=== PATIENT | female | born 1965 | race Caucasian/White ===

== ENCOUNTER 2018-11-05 15:05 | Inpatient (IN) | payer OTHER ==
[2018-11-05 19:32] VITALS: BMI 28.3
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
[2018-11-05] MEDS ORDERED: chlordiazePOXIDE HCL 25 MG CAPSULE PO ONE (20:50)
[2018-11-05] MEDS ORDERED: chlordiazePOXIDE HCL 10 MG CAPSULE PO PRN (20:50)
[2018-11-05] MEDS ORDERED: MENTHOL/PHENOL 1 EACH UD MM PRN (20:52)
[2018-11-05] MEDS ORDERED: MAG HYDROX/AL HYDROX/SIMETH 30 ML UNIT-DOSE CUP PO PRN (20:52)
[2018-11-05] MEDS ORDERED: METHOCARBAMOL 500 MG TABLET PO PRN (20:52)
[2018-11-05] MEDS ORDERED: MAGNESIUM HYDROX 2400MG/30ML ORAL SUSPENSION 30 ML CUP PO PRN (20:52)
[2018-11-05] MEDS ORDERED: BISMUTH SUBSALICYLATE 524 MG/30 ML UD PO PRN (20:52)
[2018-11-05] MEDS ORDERED: MELATONIN 5 MG TABLETS PO PRN (20:52)
[2018-11-05] MEDS ORDERED: NICOTINE POLACRILEX 2 MG GUM BUC PRN (20:52)
[2018-11-05] MEDS ORDERED: ACETAMINOPHEN 325 MG TABLET (FP) PO PRN (20:52)
[2018-11-05] MEDS ORDERED: ONDANSETRON *ODT* 4 MG TABLET SL PRN (20:52)
[2018-11-05] MEDS ORDERED: IBUPROFEN 400 MG TABLET (FP) PO PRN (20:52)
[2018-11-05] MEDS ORDERED: MAGNESIUM CITRATE 300 ML BOTTLE PO PRN (20:52)
[2018-11-05] MEDS ORDERED: BACITRACIN 0.9 GM PACKET TP SCH (22:00)
[2018-11-05] MEDS: THIAMINE HCL 100 MG TABLET (FP) PO SCH (22:21)
[2018-11-05] MEDS ORDERED: traZODone HCL 50 MG TABLET (FP) PO ONE (23:00)
[2018-11-06] MEDS: chlordiazePOXIDE HCL 25 MG CAPSULE PO SCH ×3 (06:18→22:16)
[2018-11-06] MEDS: BACITRACIN 15 GM TUBE TOPICAL OINTMENT TP SCH ×2 (10:46→22:16)
[2018-11-06] MEDS: NICOTINE 21 MG/24 HOURS TOPICAL PATCH TD SCH (10:46)
[2018-11-06] MEDS: PRENATAL VITAMINS W/ FOLIC ACID TABLET (FP) PO SCH (10:46)
[2018-11-06 10:58] LABS: HEMATOCRIT 44.5 % (32.4-45.2); MCH 30.9 pg (25.7-33.7); MCHC 33.8 g/dl (32.0-36.0); MEAN CELL VOLUME 91.5 fl (80-96); PLATELET COUNT 202 K/MM3 (134-434); RBC 4.87 M/mm3 (3.60-5.2); RDW 14.7 % (11.6-15.6)
[2018-11-06 11:00] LABS: ALBUMIN 3.3 g/dl (3.4-5.0); BILIRUBIN,TOTAL 0.6 mg/dL (0.2-1); BLOOD UREA NITROGEN 12.1 mg/dL (7-18); CALCIUM 8.8 mg/dL (8.5-10.1); CREATININE 0.7 mg/dL (0.55-1.3); POTASSIUM 3.9 mmol/L (3.5-5.1); TOT PROT 6.7 g/dl (6.4-8.2)
--- NOTE | 2018-11-06 12:22 | EKG ---
Test Reason : Blood Pressure : / mmHG Vent. Rate : 059 BPM Atrial Rate : 059 BPM P-R Int : 134 ms QRS Dur : 090 ms QT Int : 430 ms P-R-T Axes : 020 057 050 degrees QTc Int : 425 ms SINUS BRADYCARDIA WITH SINUS ARRHYTHMIA OTHERWISE NORMAL ECG NO PREVIOUS ECGS AVAILABLE Confirmed by MD ROBERT, TJ ([id number]) on 11/06/2018 12:22:11 PM Referred By: Confirmed By:TJ JONES MD
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
[2018-11-06] MEDS: ACETAMINOPHEN 325 MG TABLET (FP) PO PRN (14:39)
--- NOTE | 2018-11-06 14:50 | PN ---
S CIWA - CIWA Score Nausea/Vomitin-No Nausea/No Vomiting Muscle Tremors: None Anxiety: 5 Agitation: 0-Normal Activity Paroxysmal Sweats: 3 Orientation: 0-Oriented Tacttile Disturbances: 1-Very Mild Itch/Numbness Auditory Disturbances: 0-None Visual Disturbances: 3-Moderate Sensitivity Headache: 3-Moderate CIWA-Ar Total Score: 15 [facility] Progress Note (SOAP) Subjective: Interrupted Sleep, Anxious, H/A, Sweating, Body Aches. Objective: PATIENT A & O X 3, OBSERVED AMBULATING ON UNIT UNASSISTED. IN NO ACUTE DISTRESS. 11/06/18 14:48 Vital Signs Temperature 98.5 F 11/06/18 13:32 Pulse Rate 70 11/06/18 13:32 Respiratory Rate 18 11/06/18 13:32 Blood Pressure 115/63 11/06/18 13:32 O2 Sat by Pulse Oximetry (%) Laboratory Tests 11/05/18 11/06/18 11/06/18 19:58 07:20 07:20 WBC 8.0 RBC 4.87 Hgb 15.0 Hct 44.5 MCV 91.5 MCH 30.9 MCHC 33.8 RDW 14.7 Plt Count 202 MPV 9.0 Sodium 144 Potassium 3.9 Chloride 109 H Carbon Dioxide 28 Anion Gap 7 L BUN 12.1 Creatinine 0.7 Est GFR (CKD-EPI)AfAm 115.45 Est GFR (CKD-EPI)NonAf 99.62 Random Glucose 95 Calcium 8.8 Total Bilirubin 0.6 AST 33 ALT 42 Alkaline Phosphatase 74 Total Protein 6.7 Albumin 3.3 L POC Urine HCG, Qual Negative RPR Titer 11/06/18 07:20 WBC RBC Hgb Hct MCV MCH MCHC RDW Plt Count MPV Sodium Potassium Chloride Carbon Dioxide Anion Gap BUN Creatinine Est GFR (CKD-EPI)AfAm Est GFR (CKD-EPI)NonAf Random Glucose Calcium Total Bilirubin AST ALT Alkaline Phosphatase Total Protein Albumin POC Urine HCG, Qual RPR Titer Nonreactive LABS NOTED. Assessment: 11/06/18 14:49 WITHDRAWAL SYMPTOMS. Plan: CONTINUE DETOX.
[2018-11-06 19:06] LABS: EPI CELLS 14.6 /HPF (0-5/HPF); HYALINE CASTS 35 /lpf (0-8); PH,URINE 5.5 (5.0-8.0); URINE APPEARANCE TURBID; URINE BACTERIA 1022.2 /hpf (NEGATIVE); URINE BILIRUBIN NEGATIVE (NEGATIVE); URINE COLOR YELLOW; URINE GLUCOSE (UA) NEGATIVE (NEGATIVE); URINE KETONE TRACE (NEGATIVE); URINE LEUK ESTERASE TRACE (NEGATIVE); URINE NITRITE NEGATIVE (NEGATIVE); URINE PROTEIN TRACE (NEGATIVE); URINE WBC 49 /hpf (0-5)
[2018-11-06 20:10] LABS: URINE CRYSTALS AMORPH URATES /hpf; URINE RBC 8 /hpf (0-4)
[2018-11-06] MEDS: traZODone HCL 50 MG TABLET (FP) PO SCH (22:15)
[2018-11-06] MEDS: THIAMINE HCL 100 MG TABLET (FP) PO SCH (22:15)
[2018-11-07] MEDS ORDERED: chlordiazePOXIDE HCL 10 MG CAPSULE PO PRN (05:00)
[2018-11-07] MEDS ORDERED: chlordiazePOXIDE 5 MG CAPSULE PO SCH (05:00)
[2018-11-07] MEDS ORDERED: cloNIDine HCL 0.1 MG TABLET PO ONE (07:47)
--- NOTE | 2018-11-07 07:49 | PN ---
[facility] Progress Note Note: bp 151/101,no complaint,clonidine 0.1 mg po ,gio monitoring,continue detox
[2018-11-07] MEDS: PRENATAL VITAMINS W/ FOLIC ACID TABLET (FP) PO SCH (09:01)
[2018-11-07] MEDS: BACITRACIN 15 GM TUBE TOPICAL OINTMENT TP SCH ×2 (09:02→21:58)
[2018-11-07] MEDS: NICOTINE 21 MG/24 HOURS TOPICAL PATCH TD SCH (10:39)
[2018-11-07] MEDS: ACETAMINOPHEN 325 MG TABLET (FP) PO PRN (10:41)
[2018-11-07] MEDS ORDERED: IBUPROFEN 400 MG TABLET (FP) PO PRN (13:05)
--- NOTE | 2018-11-07 13:07 | PN ---
S CIWA - CIWA Score Nausea/Vomitin-No Nausea/No Vomiting Muscle Tremors: 3 Anxiety: 4-Mod. Anxious/Guarded Agitation: 3 Paroxysmal Sweats: No Perspiration Orientation: 0-Oriented Tacttile Disturbances: 0-None Auditory Disturbances: 0-None Visual Disturbances: 1-Very Mild Sensitivity Headache: 3-Moderate CIWA-Ar Total Score: 14 [facility] Progress Note (SOAP) Subjective: Tremors H/A, Body Aches, Anxious. Objective: PATIENT A & O X 3, OBSERVED AMBULATING ON UNIT UNASSISTED. IN NO ACUTE DISTRESS. 11/07/18 13:07 Vital Signs Temperature 98.1 F 11/07/18 09:12 Pulse Rate 68 11/07/18 09:12 Respiratory Rate 18 11/07/18 09:12 Blood Pressure 137/84 11/07/18 09:12 O2 Sat by Pulse Oximetry (%) Laboratory Tests 11/05/18 11/05/18 11/06/18 15:45 19:58 07:20 WBC 8.0 RBC 4.87 Hgb 15.0 Hct 44.5 MCV 91.5 MCH 30.9 MCHC 33.8 RDW 14.7 Plt Count 202 MPV 9.0 Sodium Potassium Chloride Carbon Dioxide Anion Gap BUN Creatinine Est GFR (CKD-EPI)AfAm Est GFR (CKD-EPI)NonAf Random Glucose Calcium Total Bilirubin AST ALT Alkaline Phosphatase Total Protein Albumin Urine Color Yellow Urine Appearance Turbid Urine pH 5.5 Ur Specific [place] 1.026 Urine Protein Trace Urine Glucose (UA) Negative Urine Ketones Trace H Urine Blood 2+ H Urine Nitrite Negative Urine Bilirubin Negative Urine Urobilinogen 1.0 Ur Leukocyte Esterase Trace Urine WBC (Auto) 49 Urine RBC (Auto) 8 Urine Casts (Auto) 35 U Pathogenic Cast Auto No Result Required. U Epithel Cells (Auto) 14.6 U Sm Round Cell (Auto) No Result Required. Urine Crystals (Auto) Amorph urates Urine Bacteria (Auto) 1022.2 POC Urine HCG, Qual Negative RPR Titer 11/06/18 11/06/18 07:20 07:20 WBC RBC Hgb Hct MCV MCH MCHC RDW Plt Count MPV Sodium 144 Potassium 3.9 Chloride 109 H Carbon Dioxide 28 Anion Gap 7 L BUN 12.1 Creatinine 0.7 Est GFR (CKD-EPI)AfAm 115.45 Est GFR (CKD-EPI)NonAf 99.62 Random Glucose 95 Calcium 8.8 Total Bilirubin 0.6 AST 33 ALT 42 Alkaline Phosphatase 74 Total Protein 6.7 Albumin 3.3 L Urine Color Urine Appearance Urine pH Ur Specific [place] Urine Protein Urine Glucose (UA) Urine Ketones Urine Blood Urine Nitrite Urine Bilirubin Urine Urobilinogen Ur Leukocyte Esterase Urine WBC (Auto) Urine RBC (Auto) Urine Casts (Auto) U Pathogenic Cast Auto U Epithel Cells (Auto) U Sm Round Cell (Auto) Urine Crystals (Auto) Urine Bacteria (Auto) POC Urine HCG, Qual RPR Titer Nonreactive LABS NOTED. Assessment: 11/07/18 13:07 WITHDRAWAL SYMPTOMS. HYPERTENSION. Plan: CONTINUE DETOX. INCREASE DAILY PO WATER INTAKE. REPEAT UA FOR ADMISSION UA ABNORMALITIES. PATIENT REPORTS THAT SHE FEELS THAT LIBRIUM DETOX MEDICATION PROTOCOL IS NOT BENEFICIAL TO HER AND REQUESTS TO BE CHANGED OVER TO VALIUM DETOX MEDICATION PROTOCOL. START LISINOPRIL, 10 MG PO DAILY FOR HYPERTENSION (PATIENT REPORTS HISTORY OF BEING PRESCRIBED THIS MEDICATION OUTPATIENT; CONFIRMED BY PHARMACIST AT [place], [place]). WILL START LISINOPRIL, 10 MG PO DAILY AND CONTINUE TO MONITOR BLOOD PRESSURE.
[2018-11-07] MEDS: diazePAM 5 MG TABLET PO SCH ×2 (14:53→21:57)
[2018-11-07] MEDS: LISINOPRIL 10 MG TABLET (FP) PO SCH (14:53)
[2018-11-07] MEDS: THIAMINE HCL 100 MG TABLET (FP) PO SCH (21:57)
[2018-11-07] MEDS: traZODone HCL 50 MG TABLET (FP) PO SCH (21:57)
[2018-11-08] MEDS ORDERED: chlordiazePOXIDE HCL 10 MG CAPSULE PO SCH (05:00)
[2018-11-08] MEDS: diazePAM 5 MG TABLET PO PRN ×2 (05:22→10:12)
[2018-11-08] MEDS ORDERED: CALAMINE 8% TOPICAL LOTION 177 ML BOTTLE TP PRN (09:51)
[2018-11-08] MEDS: PRENATAL VITAMINS W/ FOLIC ACID TABLET (FP) PO SCH (10:12)
[2018-11-08] MEDS: LISINOPRIL 10 MG TABLET (FP) PO SCH (10:12)
[2018-11-08] MEDS: NICOTINE 21 MG/24 HOURS TOPICAL PATCH TD SCH (10:13)
[2018-11-08] MEDS: BACITRACIN 15 GM TUBE TOPICAL OINTMENT TP SCH ×2 (10:16→21:34)
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
[2018-11-08] MEDS: diazePAM 5 MG TABLET PO SCH ×2 (15:15→21:35)
[2018-11-08] MEDS: traZODone HCL 50 MG TABLET (FP) PO SCH (21:35)
[2018-11-08] MEDS: THIAMINE HCL 100 MG TABLET (FP) PO SCH (22:13)
[2018-11-08 22:14] VITALS: TEMP 97
[2018-11-09] MEDS ORDERED: diazePAM 5 MG TABLET PO ONE (06:00)
[2018-11-09 07:40] VITALS: BP 142/94; PULSE 66
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
== END 2018-11-09 09:15 | disposition home or self-care (01) | DRG 774 ==
LOC: YASAS 15:05 → Y3N 20:51
PROVIDERS: ADMIT Surgery; ATTEND Surgery
PROC: HZ2ZZZZ Detoxification Services for Substance Abuse Treatment (ICD-10-PCS; principal; 2018-11-05)
DX: F10.230 Alcohol dependence with withdrawal, uncomplicated (principal); F14.20 Cocaine dependence, uncomplicated; F12.20 Cannabis dependence, uncomplicated; F17.210 Nicotine dependence, cigarettes, uncomplicated; F19.24 Other psychoactive substance dependence with psychoactive substance-induced mood disorder; F31.9 Bipolar disorder, unspecified; F41.8 Other specified anxiety disorders; F32.9 Major depressive disorder, single episode, unspecified; G47.00 Insomnia, unspecified; S49.81XA Other specified injuries of right shoulder and upper arm, initial encounter; T07.XXXA Unspecified multiple injuries, initial encounter; Y04.2XXA Assault by strike against or bumped into by another person, initial encounter; Y93.89 Activity, other specified; Y92.238 Other place in hospital as the place of occurrence of the external cause; Y99.8 Other external cause status
CPT/HCPCS: 36415; 80053; 81003; 81025; 85027; 86593; 93005; 93010; J0735